=== PATIENT | female | born 2000 | race Hispanic/Latino ===

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

== ENCOUNTER 2022-01-23 13:07 | Emergency (ER) | payer OTHER ==
[2022-01-23] MEDS ORDERED: Albuterol Sulfate 2.5 mg/0.5 ml Neb ONE (14:53)
[2022-01-23] MEDS ORDERED: Albuterol 200 PUFF (6.7GM INHALER) ONE (14:54)
[2022-01-23] MEDS ORDERED: predniSONE 20 MG TAB ONE (15:37)
== END 2022-01-23 15:25 | disposition home or self-care (01) ==
LOC: ERS 13:07
DX: J45.901 Unspecified asthma with (acute) exacerbation (principal)
CPT/HCPCS: J7512; J7611

== ENCOUNTER 2022-02-22 16:48 | Emergency (ER) | payer OTHER ==
[2022-02-22] MEDS ORDERED: Acetaminophen 500 MG TAB ONE (17:03)
== END 2022-02-22 17:59 | disposition home or self-care (01) ==
LOC: ERS 16:48
DX: B34.9 Viral infection, unspecified (principal)
CPT/HCPCS: 87804; 99283

== ENCOUNTER 2022-02-23 21:40 | Emergency (ER) | payer OTHER | END 2022-02-23 23:38 | disposition left against medical advice (07) | LOC: ERS 21:40 | DX: Z53.21 Procedure and treatment not carried out due to patient leaving prior to being seen by health care provider (principal) ==

== ENCOUNTER 2022-04-22 05:47 | Emergency (ER) | payer OTHER ==
[2022-04-22] MEDS ORDERED: Acetaminophen 500 MG TAB ONE (05:55)
[2022-04-22] MEDS ORDERED: Ibuprofen 200 MG TAB ONE (06:03)
[2022-04-22 07:00] LABS: SARS-CoV-2 NAA Rapid Test Not Detected (NotDetected)
== END 2022-04-22 07:30 | disposition home or self-care (01) ==
LOC: ERS 05:47
DX: J10.1 Influenza due to other identified influenza virus with other respiratory manifestations (principal); Z20.822 Contact with and (suspected) exposure to COVID-19
CPT/HCPCS: 71045

== ENCOUNTER 2022-11-22 12:27 | Emergency (ER) | payer OTHER ==
[2022-11-22] MEDS ORDERED: Ketorolac Tromethamine 30 MG/ML VIAL ONE (13:08)
[2022-11-22] MEDS ORDERED: Ondansetron PF 4 MG/2 ML Vial ONE ×2 (13:08→13:12)
[2022-11-22] MEDS ORDERED: Acetaminophen 500 MG TAB ONE (13:08)
[2022-11-22 13:57] LABS: SARS-CoV-2 NAA Rapid Test DETECTED (NotDetected)
== END 2022-11-22 14:50 | disposition home or self-care (01) ==
LOC: ERS 12:27
DX: U07.1 COVID-19 (principal)
CPT/HCPCS: 71045; 96361; 96374; 96375; J1885; J2405

== ENCOUNTER 2023-02-01 07:39 | Emergency (ER) | payer OTHER, SELFPAY ==
[2023-02-01] MEDS ORDERED: Ondansetron PF 4 MG/2 ML Vial ONE (08:27)
[2023-02-01] MEDS ORDERED: Dicyclomine 20 MG/2 ML VIAL ONE (08:30)
[2023-02-01 08:36] LABS: #Eosinphils 0.2 thou/uL (0.0-0.7); #Monocytes 0.5 thou/uL (0.11-0.59); #Neutrophils 6.7 thou/uL (1.40-6.50); %Basophils 0.4 % (0.0-1.0); %Eosinophils 2.3 % (0.0-10.0); %Lymphocytes 25.4 % (28.0-48.0); %Monocytes 4.8 % (0.0-4.0); %Neutrophils 66.8 % (31.0-61.0); Hematocrit 36.4 % (36.0-47.0); Hemoglobin 11.7 g/dL (12.0-16.0); Mean Corpuscular HGB CONC 32.1 g/dL (32.0-36.0); Mean Corpuscular Hemoglobin 24.5 pg (25.0-35.0); Mean Corpuscular Volume 76.3 fl (78.0-98.0); Mean Platelet Volume 10.4 fL (7.4-10.4); Platelet Count 258 10x3/uL (130-400); RBC Distribution Width 15.4 % (11.5-14.5); Red Blood Cell (RBC) Count 4.77 mill/uL (4.00-5.20)
[2023-02-01 09:00] LABS: ALT (SGPT) 19 U/L (8-55); AST (SGOT) 21 U/L (5-34); Albumin 4.7 g/dL (3.5-5.0); Alkaline Phosphatase 81 U/L (40-100); Anion Gap 13 mmol/L (10-20); BHCG - Serum Negative (NEGATIVE); BUN (Urea Nitrogen) 9 mg/dL (7.0-18.7); Bilirubin, Total 0.3 mg/dL (0.2-1.2); Calc. Creatinine Clearance 0 mL/min (70-130); Calcium 9.6 mg/dL (7.8-10.44); Carbon Dioxide 21 mmol/L (22-29); Chloride 104 mmol/L (98-107); Estimated GFR 127; Globulin 3.4 g/dL (2.4-3.5); Glucose 95 mg/dL (70-105); Lipase 7 U/L (8-78); Potassium 3.5 mmol/L (3.5-5.1); Pregs Control Background? CLEAR/WHITE (CLR/WHITE); Pregs Control Bar Appear? YES (CONTROL BAR); Protein, Total 8.1 g/dL (6.0-8.3); Sodium 134 mmol/L (136-145)
[2023-02-01 09:08] LABS: Bilirubin Negative (Negative); Blood, Urine Negative (Negative); CAUTI Indications for Culture Pelvic or flank pain; Clarity Clear (Clear); Glucose, Urine (Dipstick) Normal (Negative); Ketone, Urine Negative (Negative); Leukocyte Negative Leu/uL (Negative); Nitrite 2+ (Negative); Protein, Urine (Dipstick) Negative (Neg-Trace); RBC/HPF 0-3 HPF (0-3); Specific Gravity, Urine 1.025 (1.002-1.036); Squamous Epithelial 0-3 HPF (0-3); Urobilinogen Normal mg/dL (Less than 2); WBC/HPF 0-3 HPF (0-3)
[2023-02-01 09:12] LABS: Bacteria/HPF 1+ HPF (None Seen); Urine Culture Reflex No No
== END 2023-02-01 09:30 | disposition home or self-care (01) ==
LOC: ERS 07:39
DX: A08.4 Viral intestinal infection, unspecified (principal)
CPT/HCPCS: 80053; 81001; 83690; 84703; 85025; 96361; 96372; 96374; J2405